=== PATIENT | male | born 1985 | race Asian ===

== ENCOUNTER 2017-12-21 09:26 | Emergency (ER) | payer OTHER ==
[~2017-12-21] VITALS: Ht 160 cm; Wt 69.4 kg
[2017-12-21 10:04] LABS: CALCIUM 8.6 mg/dL (8.5-10.1); CARBON DIOXIDE 27.2 mmol/L (21-32); CHLORIDE SERUM 103 mmol/L (98-107); GFR1 > 60 mL/min; GLUCOSE SERUM 98 mg/dL (74-106); POTASSIUM SERUM 4.1 mmol/L (3.5-5.1); SODIUM SERUM 138 mmol/L (136-145)
[2017-12-21 10:08] LABS: ALKALINE PHOSPHATASE 41 U/L (46-116); ALT/SGPT 47 U/L (16-63); AST/SGOT 26 U/L (15-37); BILIRUBIN TOTAL 0.6 mg/dL (0.20-1.00); LIPASE 128 IU/L (73-393); TOTAL PROTEIN, SERUM 8.1 g/dL (6.4-8.2)
[2017-12-21 10:14] LABS: BASOPHIL % 0.4 % (0-2); PLATELET COUNT 269 x10^3mcL (130-400); RED CELL DISTRIBUTION WIDTH 14.3 % (11.5-14.5)
[2017-12-21 11:40] VITALS: BP 129/95
== END 2017-12-21 11:45 | disposition home or self-care (01) ==
LOC: ED 09:26
PROVIDERS: Emergency Medicine
DX: N23 Unspecified renal colic (principal); Z87.442 Personal history of urinary calculi
CPT/HCPCS: J1885; J2405; J7030

== ENCOUNTER 2018-10-09 18:02 | Emergency (ER) | payer OTHER ==
[~2018-10-09] VITALS: Ht 160 cm; Wt 67.1 kg
[2018-10-09 18:08] VITALS: Ht 160 cm; Wt 67.1 kg
[2018-10-09 21:12] VITALS: BP 131/90
== END 2018-10-09 21:12 | disposition home or self-care (01) ==
LOC: ED 18:02
DX: K62.5 Hemorrhage of anus and rectum (principal)

== ENCOUNTER 2019-03-07 09:47 | Emergency (ER) | payer OTHER ==
[~2019-03-07] VITALS: Ht 160 cm; Wt 65.3 kg
[2019-03-07 09:56] VITALS: BP 142/90; Ht 160 cm; Wt 65.3 kg
== END 2019-03-07 12:02 | disposition home or self-care (01) ==
LOC: ED 09:47
DX: J11.1 Influenza due to unidentified influenza virus with other respiratory manifestations (principal); M54.5 Low back pain; Z87.442 Personal history of urinary calculi
CPT/HCPCS: 87804; J1885